=== PATIENT | female | born 1980 | race Native Hawaiian/Other Pacific Islander ===

== ENCOUNTER 2016-09-21 18:56 | Emergency (ER) | payer OTHER ==
[~2016-09-21] VITALS: Ht 170.2 cm; Wt 59.0 kg
[~2016-09-21 18:56] MED LIST: CLARITIN10 MG PO
[2016-09-21 20:41] LABS: PLATELET COUNT 240 K/uL (152-353)
[2016-09-21 20:43] LABS: POTASSIUM 3.7 mmol/L (3.6-5.2); SODIUM 136 mmol/L (136-145)
[2016-09-21 21:29] VITALS: BP 129/95; TEMP 98.4
== END 2016-09-21 21:30 | disposition home or self-care (01) ==
LOC: ED 18:56
DX: J01.80 Other acute sinusitis (principal); H65.191 Other acute nonsuppurative otitis media, right ear
CPT/HCPCS: 36415; 80053; 85027; 87081; 87804; 87880; 99283

== ENCOUNTER 2016-11-03 18:12 | Emergency (ER) | payer OTHER ==
[~2016-11-03] VITALS: Ht 170.2 cm; Wt 64.4 kg
[2016-11-03 18:30] VITALS: TEMP 98.8
[2016-11-03 19:23] VITALS: BP 124/84
== END 2016-11-03 19:25 | disposition home or self-care (01) ==
LOC: ED 18:12
DX: J02.9 Acute pharyngitis, unspecified (principal); J03.90 Acute tonsillitis, unspecified
CPT/HCPCS: 99281

== ENCOUNTER 2017-10-21 20:15 | Emergency (ER) | payer OTHER ==
[~2017-10-21] VITALS: Ht 170.2 cm; Wt 54.4 kg
[2017-10-21 20:24] VITALS: TEMP 97.8
[2017-10-21 21:54] VITALS: BP 120/62
== END 2017-10-21 21:55 | disposition home or self-care (01) ==
LOC: ED 20:15
PROC: 3E1CX8Z Irrigation of Eye using Irrigating Substance (ICD-10-PCS; principal; 2017-10-21)
DX: H57.11 Ocular pain, right eye (principal); T15.91XA Foreign body on external eye, part unspecified, right eye, initial encounter
CPT/HCPCS: 99283

== ENCOUNTER 2017-12-13 20:28 | Emergency (ER) | payer OTHER ==
[~2017-12-13] VITALS: Ht 170.2 cm; Wt 54.4 kg
[2017-12-13 20:42] VITALS: TEMP 98.1
[2017-12-13 21:40] VITALS: BP 100/55
== END 2017-12-13 21:40 | disposition home or self-care (01) ==
LOC: ED 20:28
PROC: 2W3RX1Z Immobilization of Left Lower Leg using Splint (ICD-10-PCS; principal; 2017-12-13)
DX: S93.492A Sprain of other ligament of left ankle, initial encounter (principal); X50.1XXA Overexertion from prolonged static or awkward postures, initial encounter; W17.2XXA Fall into hole, initial encounter; Y92.098 Other place in other non-institutional residence as the place of occurrence of the external cause
CPT/HCPCS: 99283; L4350

== ENCOUNTER 2018-11-02 20:20 | Outpatient (CLI) | payer OTHER | END 2018-11-02 20:27 | disposition short-term general hospital (02) | LOC: AMB 20:20 | DX: M25.562 Pain in left knee (principal); W18.30XA Fall on same level, unspecified, initial encounter; Y92.019 Unspecified place in single-family (private) house as the place of occurrence of the external cause | CPT/HCPCS: A0425; A0427 ==

== ENCOUNTER 2018-11-02 20:31 | Emergency (ER) | payer OTHER ==
[~2018-11-02] VITALS: Ht 170.2 cm; Wt 53.5 kg
[2018-11-02 20:31] VITALS: BP 116/88; TEMP 97.9
[2018-11-02 21:24] LABS: PLATELET COUNT 427 K/uL (152-353)
[2018-11-02 21:31] LABS: POTASSIUM 3.4 mmol/L (3.6-5.2)
== END 2018-11-02 21:30 | disposition home or self-care (01) ==
LOC: ED 20:34
PROVIDERS: Family Medicine
DX: M25.562 Pain in left knee (principal); W22.8XXA Striking against or struck by other objects, initial encounter
CPT/HCPCS: 80053; 85027; 99283

== ENCOUNTER 2019-05-09 18:11 | Emergency (ER) | payer OTHER | END 2019-05-09 19:04 | disposition home or self-care (01) | LOC: ED 18:11 | DX: T15.92XA Foreign body on external eye, part unspecified, left eye, initial encounter (principal) | CPT/HCPCS: 99281 ==

== ENCOUNTER 2019-10-07 18:52 | Emergency (ER) | payer OTHER ==
[~2019-10-07] VITALS: Ht 170.2 cm; Wt 49.9 kg
[2019-10-07 20:15] VITALS: BP 118/68; TEMP 98.2
== END 2019-10-07 20:15 | disposition home or self-care (01) ==
LOC: ED 18:52
DX: S09.8XXA Other specified injuries of head, initial encounter (principal); W22.8XXA Striking against or struck by other objects, initial encounter; Y92.89 Other specified places as the place of occurrence of the external cause
CPT/HCPCS: 81025; 99283

== ENCOUNTER → 2019-11-26 | Outpatient (CLI) | payer OTHER | LOC: RAD 14:57 | DX: Z87.828 Personal history of other (healed) physical injury and trauma (principal) ==

== ENCOUNTER 2020-01-05 01:17 | Emergency (ER) | payer OTHER ==
[~2020-01-05] VITALS: Ht 170.2 cm; Wt 58.1 kg
[2020-01-05 03:14] VITALS: BP 121/74; TEMP 98.5
== END 2020-01-05 03:15 | disposition home or self-care (01) ==
LOC: ED 01:17
DX: S80.02XA Contusion of left knee, initial encounter (principal); S80.212A Abrasion, left knee, initial encounter; W22.8XXA Striking against or struck by other objects, initial encounter; Y92.89 Other specified places as the place of occurrence of the external cause
CPT/HCPCS: 90471; 90715; 99282

== ENCOUNTER 2020-01-08 19:36 | Emergency (ER) | payer OTHER ==
[~2020-01-08] VITALS: Ht 170.2 cm; Wt 56.7 kg
[2020-01-08 19:36] VITALS: BP 114/72; TEMP 98.9
== END 2020-01-08 19:55 | disposition home or self-care (01) ==
LOC: ED 19:36
DX: M25.512 Pain in left shoulder (principal)
CPT/HCPCS: 99281

== ENCOUNTER 2020-01-31 13:45 | Emergency (ER) | payer OTHER ==
[~2020-01-31] VITALS: Ht 172.7 cm; Wt 61.8 kg
[2020-01-31 14:02] VITALS: TEMP 98
[2020-01-31 15:44] LABS: PLATELET COUNT 315 K/uL (152-353)
[2020-01-31 15:49] LABS: POTASSIUM 3.9 mmol/L (3.6-5.2)
[2020-01-31 16:00] LABS: PARTIAL THROMBOPLASTIN TIME 26.7 SECONDS (24.5-33.6)
[2020-01-31 17:23] VITALS: BP 118/76
== END 2020-01-31 17:23 | disposition home or self-care (01) ==
LOC: ED 13:45
PROVIDERS: Hospitalist
DX: S30.1XXA Contusion of abdominal wall, initial encounter (principal); F10.10 Alcohol abuse, uncomplicated; W01.198A Fall on same level from slipping, tripping and stumbling with subsequent striking against other object, initial encounter; Y92.89 Other specified places as the place of occurrence of the external cause
CPT/HCPCS: 36415; 80048; 80320; 85027; 85610; 85730; 96360; 96375; 99284; J1885; Q9963

== ENCOUNTER 2020-04-19 19:15 | Emergency (ER) | payer OTHER ==
[~2020-04-19] VITALS: Ht 172.7 cm; Wt 63.5 kg
[2020-04-19 21:52] VITALS: BP 134/80; TEMP 98.2
== END 2020-04-19 21:52 | disposition home or self-care (01) ==
LOC: ED 19:15
DX: S80.11XA Contusion of right lower leg, initial encounter (principal); S70.11XA Contusion of right thigh, initial encounter; S70.01XA Contusion of right hip, initial encounter; V03.00XA Pedestrian on foot injured in collision with car, pick-up truck or van in nontraffic accident, initial encounter; Y92.89 Other specified places as the place of occurrence of the external cause
CPT/HCPCS: 99283

== ENCOUNTER 2020-09-16 09:55 | Outpatient (CLI) | payer OTHER | END 2020-09-16 19:51 | disposition home or self-care (01) | LOC: RAD 09:55 | PROVIDERS: ATTEND Nurse Practitioner Family | DX: R39.198 Other difficulties with micturition (principal); M54.5 Low back pain ==

== ENCOUNTER 2020-12-30 09:09 | Emergency (ER) | payer OTHER ==
[~2020-12-30] VITALS: Ht 170.2 cm; Wt 74.8 kg
[2020-12-30 10:25] VITALS: BP 136/90; TEMP 98.1
== END 2020-12-30 10:24 | disposition home or self-care (01) ==
LOC: ED 09:09
DX: T63.301A Toxic effect of unspecified spider venom, accidental (unintentional), initial encounter (principal); N61.0 Mastitis without abscess; X58.XXXA Exposure to other specified factors, initial encounter; Y92.89 Other specified places as the place of occurrence of the external cause
CPT/HCPCS: 96372; 99283; J2930

== ENCOUNTER 2021-02-21 08:42 | Outpatient (CLI) | payer OTHER | END 2021-02-21 19:02 | disposition home or self-care (01) | LOC: US 08:42 | PROVIDERS: ATTEND Nurse Practitioner Family | DX: R74.8 Abnormal levels of other serum enzymes (principal) ==

== ENCOUNTER → 2021-02-22 | Outpatient (CLI) | payer OTHER | LOC: RAD 13:35 | PROVIDERS: ATTEND Nurse Practitioner Family | DX: M25.572 Pain in left ankle and joints of left foot (principal); M25.562 Pain in left knee; M79.672 Pain in left foot ==

== ENCOUNTER 2021-10-26 07:24 | Emergency (ER) | payer OTHER ==
[~2021-10-26] VITALS: Ht 170.2 cm; Wt 74.8 kg
[2021-10-26 07:31] VITALS: TEMP 97.5
[2021-10-26 08:08] LABS: PLATELET COUNT 267 K/uL (152-353)
[2021-10-26 08:17] LABS: POTASSIUM 3.6 mmol/L (3.6-5.2)
[2021-10-26] MEDS ORDERED: ONDA4TAB3 PO (10:12)
[2021-10-26] MEDS ORDERED: PANTOPRAZOLE 40MG TA PO (10:12)
[2021-10-26 10:18] VITALS: BP 118/64
== END 2021-10-26 10:18 | disposition still patient (30) ==
LOC: ED 07:24
PROVIDERS: Emergency Medicine
DX: R10.13 Epigastric pain (principal); K21.9 Gastro-esophageal reflux disease without esophagitis; Z87.898 Personal history of other specified conditions
CPT/HCPCS: 36415; 80053; 81000; 81025; 83690; 84484; 85027; 93005; 96360; 96375; 99284; J3490; Q9963

== ENCOUNTER 2022-09-14 12:42 | Outpatient (CLI) | payer OTHER ==
[~2022-09-14 12:42] MED LIST changes: +ONDA4TAB3 PO; +PANTOPRAZOLE 40MG TA PO
== END 2022-09-14 19:42 | disposition home or self-care (01) ==
LOC: CT 12:42
PROVIDERS: ATTEND Nurse Practitioner Family
DX: R31.9 Hematuria, unspecified (principal); R50.9 Fever, unspecified; R30.0 Dysuria; R10.9 Unspecified abdominal pain; Z09 Encounter for follow-up examination after completed treatment for conditions other than malignant neoplasm

== ENCOUNTER 2022-09-14 13:24 | Emergency (ER) | payer OTHER ==
[~2022-09-14] VITALS: Ht 172.7 cm; Wt 72.6 kg
[2022-09-14 13:29] VITALS: BP 131/98; TEMP 98.7
[2022-09-14 14:02] LABS: PLATELET COUNT 234 K/uL (152-353)
[2022-09-14 14:16] LABS: POTASSIUM 3.4 mmol/L (3.6-5.2)
== END 2022-09-14 14:36 | disposition home or self-care (01) ==
LOC: ED 13:24
PROVIDERS: Internal Medicine
DX: F41.8 Other specified anxiety disorders (principal)
CPT/HCPCS: 36415; 80053; 80307; 81002; 85027; 99283

== ENCOUNTER 2022-10-04 08:20 | Outpatient (CLI) | payer OTHER | END 2022-10-04 17:00 | disposition home or self-care (01) | LOC: MRI 08:20 | PROVIDERS: ATTEND Nurse Practitioner Family | DX: N94.89 Other specified conditions associated with female genital organs and menstrual cycle (principal); R93.5 Abnormal findings on diagnostic imaging of other abdominal regions, including retroperitoneum | CPT/HCPCS: A9576 ==

== ENCOUNTER 2023-02-12 05:43 | Observation (INO) | payer OTHER ==
[2023-02-12] VITALS (8 sets, daily range): BP systolic 130–137; BP diastolic 80–92; TEMP 97–98.2; Ht 172.7 cm; Wt 70.3 kg
[~2023-02-12] VITALS: Ht 172.7 cm; Wt 70.3 kg
[2023-02-12 06:17] LABS: PLATELET COUNT 431 K/uL (152-353)
[2023-02-12 06:21] LABS: POTASSIUM 3.4 mmol/L (3.6-5.2)
[2023-02-12] MEDS ORDERED: MONT10TA PO (11:10)
[2023-02-12] MEDS ORDERED: CETI10TA PO (11:11)
[2023-02-12] MEDS ORDERED: WOMENS PROBIOTIC PO (11:12)
[2023-02-12] MEDS ORDERED: GUAIFENESI PO (11:54)
[2023-02-12] MEDS ORDERED: CEFDINIR250 MG/5 M PO (11:55)
[2023-02-12] MEDS ORDERED: MEDROL DOSEPAK4 MG (11:55)
[2023-02-13] VITALS: BP 142/90; TEMP 97.4
[2023-02-13 03:51] VITALS: BP 152/93; TEMP 98.2
[2023-02-13 05:25] LABS: PLATELET COUNT 293 K/uL (152-353)
[2023-02-13 05:52] LABS: POTASSIUM 4.2 mmol/L (3.6-5.2)
[2023-02-13 08:00] VITALS: BP 128/97; TEMP 97.8
[2023-02-13 12:00] VITALS: BP 128/85; TEMP 97.8
== END 2023-02-13 15:20 | disposition home or self-care (01) ==
LOC: ED 05:43 → MED/SURG 07:56
PROVIDERS: Family Medicine; ADMIT Internal Medicine Endocrinology, Diabetes & Metabolism; ATTEND Internal Medicine Endocrinology, Diabetes & Metabolism
DX: R07.89 Other chest pain (principal); R06.02 Shortness of breath; R10.9 Unspecified abdominal pain; M35.00 Sjogren syndrome, unspecified; R94.5 Abnormal results of liver function studies; K76.0 Fatty (change of) liver, not elsewhere classified; K21.9 Gastro-esophageal reflux disease without esophagitis; Z72.0 Tobacco use
CPT/HCPCS: 36415; 80053; 80061; 81002; 83690; 84484; 85027; 93005; 96361; 96374; 96375; 96376; 99221; 99284; G0378; J2270; J2405; Q9963